=== PATIENT | female | born 1985 | race Caucasian/White ===

== ENCOUNTER → 2019-01-30 14:08 | Outpatient (CLI) | payer MEDICAID, SELFPAY ==
--- NOTE | 2019-01-30 | IMM_PTH ---
PATIENT: HALEY MEZA LOC: [facility] U#:[id number] AGE/SX: 39/F ROOM: RE01/30/[address]: Dr. Hakan Silva MD : 1985 BED: DIS: SPEC #: [id number] RECD: 01/31/19 13:34 STATUS: STEPH RECasandra #: [id number] EARLE: 01/30/19 00:[address]: Hakan Silva DEPT: IMMUNOHISTOCHEMISTRY RECD BY: Mitali Chand ENTERED: 01/31/19 13:35 SP TYPE: IMMUNO OTHR DR: No Primary Care Phys Tissues: A - Uterine cervix, NOS B - Endocervical Procedures: p16 (initial) KI-67 (add) PHYSICIAN & INSTITUTION [place] [id number] SPECIMEN INFORMATION: Tissue Source: A - Four-quadrant cervix, B - ECC Clinical Info: HGSIL, positive HPV Specimen Number: [id number] A & B CPT code: 73350 x2, 24232 x2 METHODOLOGY: Deparaffinized sections of prefer/formalin-fixed tissue or PAP/DQ stained slides are incubated with monoclonal/polyclonal antibodies/oligonucleotide probes. Localization is made via biotin free immunoperoxidase method. Appropriate controls are performed and reacted as expected. Results on target cell population are indicated in the following table: RESULTS: ANTIBODY / CLONE RESULT Block A P16 (E6H4) positive, block staining Ki-67 (30-9) positive Block B P16 (E6H4) positive, block staining Ki-67 (30-9) positive These tests were developed and their performance characteristics determined by [facility]. They may not have been cleared or approved by the U.S. Food and Drug Administration. The FDA has determined that such clearance or approval is not necessary. INTERPRETATION: A. Four-quadrant cervix: Mild to moderate squamous dysplasia. B. ECC: A few minute fragments of detached and unoriented squamous epithelium with moderate dysplastic changes. SJ:ethan 02/01/19
--- NOTE | 2019-01-30 | CER_PTH ---
PATIENT: HALEY MEZA LOC: [facility] U#:[id number] AGE/SX: 39/F ROOM: RE01/30/[address]: Dr. Hakan Silva MD : 1985 BED: DIS: SPEC #: [id number] RECD: 01/30/19 14:35 STATUS: STEPH ISSAC #: [id number] EARLE: 01/30/19 00:[address]: Hakan Silva DEPT: SURGICAL PATHOLOGY RECD BY: Arsenio Chan ENTERED: 01/30/19 14:36 SP TYPE: CERV OT DR: No Primary Care Phys Tissues: A - Uterine cervix, NOS B - Endocervical Procedures: Surgery Specimen Level IV HEADER OPERATION: Colposcopy PRE-OP DIAGNOSIS: HGSIL, positive HPV R87.810 TISSUE SUBMITTED: A - Four-quadrant cervix, B - ECC MICROSCOPIC DIAGNOSIS A. Cervix, four-quadrant biopsy: Mild and moderate squamous dysplasia with HPV changes (HGSIL and CECILIA I-II). Dysplastic changes also involves the endocervical glands. hronic inflammation. See comment. B. ECC: A few minute detached and unoriented fragments of squamous epithelium with moderate dysplastic changes. Fragments of benign endocervical epithelial cells, blood and mucous. See comment. ALEXIS:ethan 01/31/19 COMMENT A & B. Immunohistochemistry ([id number]) for surrogate HPV marker (p16) supports the above diagnosis. MICROSCOPIC DESCRIPTION Slides are reviewed. GROSS DESCRIPTION A - Received in fixative is one container labeled with the patient's name and designated four quadrant. The specimen consists of multiple irregular fragments of light salazar soft tissue that in aggregate measure 1.5 x 0.2 x 0.1 cm. The specimen is totally submitted in one cassette. B - Received in fixative is one container labeled with the patient's name and designated ECC. The specimen consists of multiple fragments of hemorrhagic mucoid tissue that in aggregate measure 1.5 x 1.5 x 0.1 cm. The specimen is totally submitted in one cassette. / SJ:ethan 01/30/19 TC: CPT:
== END ==
PROVIDERS: Referring Provider Obstetrics & Gynecology; Visit Provider Obstetrics & Gynecology
DX: R87.810 Cervical high risk human papillomavirus (HPV) DNA test positive (principal)
CPT/HCPCS: 88305; 88341; 88342

== ENCOUNTER 2019-02-28 10:21 | Day surgery (SDC) | payer MEDICAID, SELFPAY ==
[2019-02-21 11:42] LABS: Hematocrit 42.6 % (37-47); Hemoglobin 13.8 g/dl (12.0-15.0); Mean Corp Hgb Conc 32.4 g/gl (32-36); Mean Corpuscular Hgb 30.9 pg (27.0-32.0); Mean Corpuscular Volume 95.5 fL (81-99); Mean Platelet Vol. 10.6 fl (6.2-12.0); Platelet Count 231 K/mm3 (150-450); RBC Distribution Width CV 13.1 % (11.6-14.6); RBC Distribution Width SD 45.7 fl (35.1-43.9); Red Blood Count 4.46 M/mm3 (4.2-5.4); White Blood Count 3.7 K/mm3 (4.4-11.0)
[2019-02-21 11:43] LABS: Scan Indicated on CBC? Y/N NO
[2019-02-21 11:58] LABS: Partial Thromboplast Time 28.6 Seconds (24.1-36.2); Prothrombin Time (Protime)PT. 12.9 SECONDS (11.7-14.9)
[2019-02-21 12:00] LABS: Internal QC Validated? YES +Cl - CLEAR BKGD; Pregnancy, Serum, hCG Quali. NEGATIVE Negative
--- NOTE | 2019-02-28 | IMM_PTH ---
PATIENT: HALEY MEZA [place]: [facility] [place][id number] AGE/SX: 33/F ROOM: RE02/28/[address]: Dr. Hakan Silva MD : 1985 BED: DIS: 02/28/2019 SPEC #: [id number] RECD: 03/04/19 12:09 STATUS: STEPH RECasandra #: [id number] EARLE: 02/28/19 00:[address]: Hakan Silva DEPT: IMMUNOHISTOCHEMISTRY RECD BY: Mitali Chand ENTERED: 03/04/19 12:10 SP TYPE: IMMUNO OTHR DR: Shirin Sweeney, QA SOFTWARE TEST ENGINEER-C Tissues: A - Uterine cervix, NOS Procedures: p16 (initial) KI-67 (add) PHYSICIAN & [place] [id number] SPECIMEN INFORMATION: Tissue Source: A - Ectocervix Clinical Info: Moderate cervical dysplasia Specimen Number: [id number] CPT code: 60928, 40672 METHODOLOGY: Deparaffinized sections of prefer/formalin-fixed tissue or PAP/DQ stained slides are incubated with monoclonal/polyclonal antibodies/oligonucleotide probes. Localization is made via biotin free immunoperoxidase method. Appropriate controls are performed and reacted as expected. Results on target cell population are indicated in the following table: RESULTS: ANTIBODY / CLONE RESULT Block A4 P16 (E6H4) positive, focal block staining Ki-67 (30-9) positive These tests were developed and their performance characteristics determined by [facility]. They may not have been cleared or approved by the U.S. Food and Drug Administration. The FDA has determined that such clearance or approval is not necessary. INTERPRETATION: A. Ectocervix, LEEP conization: Focal mild and moderate squamous dysplasia. ALEXIS:ethan 03/05/19 Case has been reviewed in consultation with Dr. Beltran who concurs with the above diagnosis. IDC:AM
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
[2019-02-28 10:52] VITALS: BP 105/64; PULSE 62; RESP 16; TEMP 36.8; O2SAT 100; BMI 22.1
[2019-02-28 10:55] LABS: Internal QC Validated? YES +Cl - CLEAR BKGD; Pregnancy, Urine Negative Negative
--- NOTE | 2019-02-28 12:00 | CER_PTH ---
PATIENT: HALEY MEZA LOC: [facility] – [place] U#:[id number] AGE/SX: 33/F ROOM: RE02/28/[address]: Dr. Hakan Silva MD : 1985 BED: DIS: 02/28/2019 SPEC #: [id number] RECD: 03/01/19 10:03 STATUS: STEPH ISSAC #: [id number] EARLE: 02/28/19 12:[address]: Hakan Silva DEPT: SURGICAL PATHOLOGY RECD BY: Ant Dill ENTERED: 03/01/19 14:09 SP TYPE: CERV OTHR DR: Shirin Sweeney, THERAPEUTIC RECREATION LEADER-C Tissues: A - Uterine cervix, NOS B - Endocervical C - Endocervical Procedures: Surgery Specimen Level IV Surgery Specimen Level V HEADER OPERATION: LEEP cone PRE-OP DIAGNOSIS: Moderate cervical dysplasia TISSUE SUBMITTED: A - Ectocervix, B - Endocervix, C - Endocervical curettings MICROSCOPIC DIAGNOSIS A. Ectocervix, LEEP conization: Focal mild and moderate squamous dysplasia with HPV changes (HGSIL and CECILIA I-II). Chronic inflammation. Resection margins are free of dysplastic changes. See comment. B. Endocervix, LEEP conization: A piece of endocervical mucosa, negative for dysplasia. C. ECC: Fragments of benign endocervical epithelium and mucous, negative for dysplasia. SJ:ethan 03/04/19 COMMENT A. Immunohistochemistry ([id number]) for surrogate HPV marker (p16) supports the above diagnosis. Dysplastic changes focally also involve the endocervical glands. The dysplastic changes predominantly are noted in the detached piece of tissue. Case has been reviewed in consultation with Dr. Beltran who concurs with the above diagnosis. IDC:AM MICROSCOPIC DESCRIPTION Slides are reviewed. GROSS DESCRIPTION A - Received in fixative is one container labeled with the patient's name and designated ectocervix. The specimen consists of a previously opened, indurated piece of LEEP conization measuring 2 x 1.5 x 0.5 cm. No mucosal lesion is identified. The specimen is not oriented. The nonmucosal surface is inked black. Also present in the container is a detached piece of tissue measuring 1.3 x 0.5 x 0.2 cm. A mucosal lesion is identified. The smaller piece is inked blue. The entire specimen is submitted in four cassettes as follows: 1-4 - each cassette containing one quadrant (cassette 4 also contains the detached smaller piece of tissue). B - Received in fixative is one container labeled with the patient's name and designated endocervix. The specimen consists of a piece of salazar, indurated tissue measuring 0.6 x 0.4 x 0.2 cm. No mucosal lesion is identified. The nonmucosal surface is inked black. The specimen is bisected and submitted entirely in one cassette. C - Received in fixative is one container labeled with the patient's name and designated ECC. The specimen consists of multiple irregular fragments of salazar mucoid tissue that in aggregate measure 1 x 0.5 x 0.1 cm. The specimen is totally submitted in one cassette. / ALEXIS:ethan 03/01/19 TC:5 CPT: 01086 x2, 58909
--- NOTE | 2019-02-28 12:09 | PCM.OPRPT ---
Report of Operation Date of Procedure: 02/28/19 Pre-Operative Diagnosis: Moderate Cervical Dysplasia Post-Operative Diagnosis: Moderate Cervical Dysplasia Surgery/Procedure Performed:: LEEP Conization of Cervix, Removal of IUD Description of Surgical Findings:: Normal-appearing cervix. Wide squamocolumnar junction. Mirena IUD present. Type of Anesthesia:: MAC Anesthesiologist: Irina Flores Specimen's removed: Ectocervix, endocervix, ECC after LEEP Drains: None Estimated Blood Loss (mL): Minimal Fluids Replaced: Crystalloid Description of Procedure: Surgeon: Hakan Silva MD, FACOG Indication: 33 year old patient who was recently noted to have moderate cervical dysplasia at time of cervical biopsy. Patient has an IUD in place. Given this, the patient desires that we proceed with the above surgery. She has been counseled regarding the risk, indications, and alternatives of this procedure and desire that we proceed. All questions answered. Procedure: Patient taken to the operating room where she was given IV sedation and placed in the dorsal lithotomy position and prepped and draped in the usual sterile fashion. Cervix was visualized and painted with Lugol's solution. The ectocervix was then removed to a depth of 5 mm on a setting of 50 W cutting and endocervix removed to a depth of 7 mm on a setting of 50 W cutting. While removing the endocervical specimen IUD was also removed. Endocervical curettings were obtained. Base of the cone was then cauterized a setting of 50 W coagulation and Monsel's was painted across the LEEP base. Pt tolerated the procedure well and was taken to the recovery room in satisfactory condition. Sponge, instruments and needle counts were all correct. There were no apparent complications of the surgery. To Pathology: Ectocervix, endocervix, ECC after LEEP EBL Minimal. Grafts/Implants Used: None - Complications None - Admit VTE Documentation VTE Present on Admission: Yes VTE Mechan Device Prophylaxis: SCD's VTE Pharm Prophylaxis ordered?: No Reason prophylaxis not ordered:: Treatment Not Indicated
--- NOTE | 2019-02-28 12:14 | DCINST_ITS ---
Discharge Diet: No Restrictions Discharge Activity: Return to Normal Activity, May not drive while taking narcotic pain medications., May Shower, May Take a Tub Bath May resume sexual activity in: 4 weeks - nothing in the vagina for 4 weeks. Call your doctor if you observe: Fever of 101 or Higher, Inability to urinate, Inability to have a bowel movement, Using more than one pad per hour Allergies/Adverse Reactions: Allergies codeine Allergy (Verified 02/28/19 10:43) Anaphylaxis Medications to take at Discharge Fluoxetine HCl [Prozac] 20 mg PO DAILY 02/21/19 Spironolactone [Aldactone] 50 mg PO BID 02/21/19 Primary Care Physician: Shirin Sweeney NP-C [Primary Care Provider] - Test Results: Test results from this visit will be discussed in further detail at your follow- up appointment, if applicable. Please Follow Up With: Hakan Silva MD When: 3 to 4 weeks
[2019-02-28] MEDS: FERRIC SUBSULFATE 8 GM SOLN (12:28)
[2019-02-28 12:40] VITALS: BP 105/64; BP 94/53; PULSE 65; RESP 14; TEMP 36.1; O2SAT 98
[2019-02-28 12:45] VITALS: BP 105/64; BP 90/52; PULSE 62; RESP 16; O2SAT 99
[2019-02-28 13:05] VITALS: BP 105/64; BP 97/55; PULSE 56; RESP 16; O2SAT 100
[2019-02-28 13:15] VITALS: BP 105/64; BP 97/58; PULSE 57; RESP 16; TEMP 36.3; O2SAT 100
[2019-02-28 14:00] VITALS: BP 105/64
== END 2019-02-28 14:25 | disposition home or self-care (01) ==
LOC: SDC 10:21 → AC 10:21
PROVIDERS: Family Provider Nurse Practitioner Family; PCP Nurse Practitioner Family; Referring Provider Obstetrics & Gynecology; Visit Provider Obstetrics & Gynecology
PROC: 0UBC7ZZ Excision of Cervix, Via Natural or Artificial Opening (ICD-10-PCS; CPT 57522; principal; 2019-02-28 11:45)
DX: N87.1 Moderate cervical dysplasia (principal); Z87.891 Personal history of nicotine dependence
CPT/HCPCS: 57522; 58301; 36415; 81025; 84703; 85027; 85610; 85730; 86850; 86900; 88305; 88307; 88341; 88342; J7120; J2405

== ENCOUNTER → 2021-01-28 | Outpatient (CLI) | payer MEDICAID, SELFPAY ==
[2021-02-01 12:56] LABS: HPV APTIMA, High Risk Negative (Negative)
[2021-02-01 13:00] LABS: HPV Reflexed? YES, CHARGE PATIENT
== END | disposition home or self-care (01) ==
LOC: LABSPEC 11:30
PROVIDERS: PCP Nurse Practitioner Family; Visit Provider Obstetrics & Gynecology
DX: Z12.4 Encounter for screening for malignant neoplasm of cervix (principal)
CPT/HCPCS: 87624; 88175; G0145